=== PATIENT | male | born 1995 | race Hispanic/Latino ===

== ENCOUNTER → 2024-03-19 | Day surgery (SDC) | payer BC ==
[~2024-03-19] MED LIST: ALBUTEROL HFA 90MCG INH; FAMOTIDINE20 MG PO; FENTANYL CITRATE/PF 100MCG/2 ML INJ ONE; METOCLOPRAMIDE10 MG PO; MIDAZOLAM HCL 2 MG/2 ML VIAL ONE; OMEPRAZOLE40 MG PO; ONDANSETRON ODT8 MG SL; PROPOFOL IV EMULSION 10 MG/ML 20 ML VIAL ONE
[2024-03-19] MEDS: METOCLOPRAMIDE HCL 10 MG/2ML VIAL ONE (14:14)
[2024-03-19 14:42] VITALS: BP 117/62; PULSE 84; RESP 17; O2SAT 98
== END | disposition home or self-care (01) ==
LOC: OR 11:55
PROVIDERS: ATTEND Internal Medicine Gastroenterology
DX: K29.60 Other gastritis without bleeding (principal); K20.90 Esophagitis, unspecified without bleeding; K21.9 Gastro-esophageal reflux disease without esophagitis; K44.9 Diaphragmatic hernia without obstruction or gangrene; R09.A2 Foreign body sensation, throat; R63.0 Anorexia; Z71.3 Dietary counseling and surveillance; J45.909 Unspecified asthma, uncomplicated; R68.83 Chills (without fever); R52 Pain, unspecified; Z71.89 Other specified counseling; F41.9 Anxiety disorder, unspecified; Z79.899 Other long term (current) drug therapy
CPT/HCPCS: 43239; 43450; J2250; J2470; J2704; J2765; J3010